=== PATIENT | male | born 1970 | race Caucasian/White ===

== ENCOUNTER 2016-08-26 17:06 | Emergency (ER) | payer OTHER, BC ==
--- NOTE | ~2016-08-26 | OR ---
Unit #: [id number] #: [id number] Patient: KEN STEINER [id number] [address] [place], [place] [address] [id number] I MR#: [id number] NAME: KEN STEINER ROOM: [id number] Date of Procedure: 08/27/2016 Admission Date: 08/27/2016 Surgeon: Maycol Silva M.D. : 1970 Attending Physician: Maycol Silva M.D. OPERATIVE REPORT PREOPERATIVE DIAGNOSIS Acute cholecystitis. POSTOPERATIVE DIAGNOSIS Acute cholecystitis. PROCEDURE PERFORMED Laparoscopic cholecystectomy. ANESTHESIA General endotracheal. COMPLICATIONS None. ESTIMATED BLOOD LOSS Minimal. DESCRIPTION OF PROCEDURE After the patient was prepped and draped in usual fashion, 1 cm infraumbilical incision was made. A Veress needle was passed. The peritoneal cavity was insufflated in usual fashion. A 5-mm port was placed and under direct vision, an upper midline 11-mm port and two right upper quadrant 5-mm ports were placed. The gallbladder was quickly identified. It was very long and distended. The tip of the gallbladder went all the way down to the pelvic inlet. It was tensely distended and edematous, and I could not grasp this. Approximately 60 mL of white bile was aspirated. The gallbladder was then grasped, retracted cephalad. The adhesions of omentum were stripped down bluntly to expose the infundibulum. The infundibulum was grasped and the cystic duct and cystic artery were dissected from the surrounding tissues. The cystic duct was clipped doubly proximally, singly distally. As this was divided, it appeared that the duct was toward the end of the clips and was not completely occluded as there was some fat in the front portion of the clips. With this, two more clips were placed before it was completely divided in order to secure the cystic duct, so that there would not be a bile leak. The cystic duct was then completely divided. Cystic artery was found just beneath and medial to this. This was clipped doubly proximally, singly distally, and divided. As the infundibulum was taken off the bed with electrocautery, and the anterior artery was identified as well, this was clipped doubly proximally, singly distally, and divided. The bed of the gallbladder was very edematous. This was taken off the bed using electrocautery and retrieved through the upper midline trocar site Unit #: [id number] #: [id number] Patient: KEN STEINER through an Endopouch. The specimen barely fit from the pouch. I had to extend the incision about 1 cm to 1.5 cm and incised fascia as well in order to remove the large specimen. The right upper quadrant was inspected. There was no bleeding from the bed. Because there had been avulsed spillage of bile and there had been some oozing. I did irrigate the right upper quadrant and suctioned free. There was still no bleeding from the bed. The ports were removed under direct vision. There was no bleeding. Abdomen was desufflated. The first upper midline trocar site was closed with 2 interrupted [id number] stitches of 0 Vicryl. All skin incisions were closed with clips. All skin incisions were infiltrated with 0.5% Marcaine with epinephrine. Dressings were applied. The patient was taken to the recovery room in good condition. Dictated by... Lashon Khan/naeem TD: 08/27/2016 23:22 JOB #: [id number] OPERATIVE REPORT Page 1 of 1 X Maycol Silva PROCEDURE OPERATIVE NOTE
--- NOTE | ~2016-08-26 | US67 ---
[facility] A Service of [facility] RADIOLOGY TEXT RESULTS PATIENT: KEN STEINER LOCATION: [facility] : [birth year] UNIT #: [id number] AGE: [address]: Pedrito Sheppard DO SEX: M ORDER DR: [id number] [facility] [address] [place], [place] [address] [id number] E MR#: [id number] Acc #: [id number] NAME: KEN STEINER : 1970 SEX: M STUDY DATE/TIME: 08/26/2016 21:00 UNIT: [facility] ROOM: STUDY DESCRIPTION: Gallbladder Attending Physician: Pedrito Sheppard D.O. Ordering Physician: Pedrito Sheppard D.O. Primary Care Physician: No Primary Care Physician MEDICAL IMAGING REPORT This report is preliminary unless electronic signature is present EXAM Gallbladder ultrasound HISTORY Right upper quadrant pain for 2 days. FINDINGS Ultrasound examination of the gallbladder demonstrates gallbladder distension, measuring at least 16 cm in length, but less well visualized in its long dimension than on CT earlier today when it measured over 19 cm in length. There is mild diffuse gallbladder wall thickening, and there is a small amount of fluid about the gallbladder, and there are multiple gallstones measuring up to approximately 2 cm. Findings are concerning for cholecystitis. The common bile duct measures 6 mm in diameter. No hepatic mass adjacent to the gallbladder fossa. IMPRESSION 1. Findings are concerning for cholecystitis with gallbladder distension, [id number] diffuse gallbladder wall thickening, small amount of adjacent pericholecystic fluid and gallstones measuring up to approximately 2 cm. Findings correspond to those on CT earlier today. 2. No biliary dilatation. Dictated by... Adarsh Persaud M.D. THIS IS AN ELECTRONICALLY VERIFIED REPORT Adarsh Persaud M.D. at 08/26/2016 10:32 PM DFL/juliar TD: 08/26/2016 22:20 [facility] A Service of [facility] RADIOLOGY TEXT RESULTS PATIENT: KEN STEINER [id number] [birth year] UNIT #: [id number] AGE: [address]: Pedrito Sheppard DO SEX: M ORDER DR: HARIKA #: [id number] MEDICAL IMAGING REPORT Page 1 of 1 COPY
--- NOTE | ~2016-08-26 | CO ---
Unit #: [id number] #: [id number] Patient: KEN STEINER [id number] [address] [address] [id number] I MR#: [id number] NAME: KEN STEINER ROOM: 55576 Age: 45 Sex: M Admission Date: 08/27/2016 : 1970 Attending Physician: Maycol Silva M.D. Consultation Date: 08/27/2016 CONSULTATION REPORT PRIMARY REASON FOR CONSULTATION Acute cholecystitis. HISTORY OF PRESENT ILLNESS The patient is a 45-year-old gentleman, who presents to the emergency room with a 3-day history of upper and mid abdominal pain. He has never had any previous such symptoms. He denies any previous food intolerance. He denies any fevers or chills. He has had nausea, but no vomiting. He denies any diarrhea. Pain is exacerbated by movement, relieved by nothing. CT scan in the emergency room was benign other than suggesting some thickened, inflammation of the gallbladder. An ultrasound subsequently showed gallstones and thickened gallbladder wall. PAST MEDICAL HISTORY As above. He has had no previous abdominal surgeries. He has no chronic medical illnesses. REVIEW OF SYSTEMS A 10-point review is performed. This is negative other than what was already listed in the history of present illness. MEDICATIONS See his MAR. ALLERGIES He has no known medical allergies. SOCIAL HISTORY He is a smoker. He denies alcohol or drug abuse. FAMILY HISTORY Noncontributory. PHYSICAL EXAMINATION GENERAL: He is alert, in some mild abdominal discomfort. VITAL SIGNS: Temperature is 98.6, heart rate 83, blood pressure 155/76, respirations 15. He is 100% saturated on room air. HEENT: Pupils are equal and round. Extraocular motions are intact. NECK: Supple without adenopathy. HEART: Regular rate and rhythm. LUNGS: Clear to auscultation anteriorly. ABDOMEN: Soft, flat with guarding in the epigastric and right upper quadrant areas. No masses appreciable. EXTREMITIES: Negative for clubbing, cyanosis, or edema. Unit #: [id number] #: [id number] Patient: KEN STEINER NEUROLOGIC: Negative focal sensory or motor deficits. SKIN: Warm and dry. DIAGNOSTIC STUDIES LABORATORY RESULTS: Significant for normal white blood cell count and normal liver function tests. IMAGING STUDIES: CT and ultrasound as described above. ASSESSMENT AND PLAN The patient with acute cholecystitis. I have discussed the laparoscopic cholecystectomy with him including the risks of bleeding, infection, and conversion to an open procedure. He understands and agrees to proceed. This will be done later today. Dictated by... Lashon Khan/naeem TD: 08/27/2016 09:08 JOB #: [id number] CONSULTATION REPORT Page 1 of 1 X Maycol Silva CONSULTATION REPORT
--- NOTE | ~2016-08-26 | CT2 ---
[facility] A Service of [facility] RADIOLOGY TEXT RESULTS PATIENT: KEN STEINER LOCATION: [facility] : [birth year] UNIT #: [id number] AGE: [address]: Maycol Silva SEX: M ORDER DR: [id number] [facility] [address] [place], [place] [address] [id number] E MR#: [id number] Acc #: [id number] NAME: KEN STEINER : 1970 SEX: M STUDY DATE/TIME: 08/26/2016 18:30 UNIT: [facility] ROOM: STUDY DESCRIPTION: CT Abd and Pelv W Cont Attending Physician: Pedrito Sheppard D.O. Ordering Physician: Pedrito Sheppard D.O. MEDICAL IMAGING REPORT This report is preliminary unless electronic signature is present EXAM CT abdomen and pelvis with contrast INDICATIONS Left lower quadrant abdominal pain since yesterday. TECHNIQUE Contrast-enhanced CT of the abdomen and pelvis. 100 mL of Isovue-370. This CT exam was performed with one or more of the following radiation dose reduction techniques: automatic exposure control, adjustment of mA and/or kV according to patient size, and iterative reconstruction. COMPARISON None. FINDINGS ABDOMEN WITH CONTRAST: Included lung bases are clear. The liver, spleen, kidneys, adrenal glands, pancreas are unremarkable. Bowel loops are non-dilated. The appendix is non-dilated. No abdominal fluid collection. The gallbladder is significantly elongated measuring approximately 19 cm in length. There are a few areas suspicious for a trace amount of pericholecystic fluid. PELVIS WITH CONTRAST: No pelvic mass or fluid. No aggressive appearing bone lesion. IMPRESSION 1. No definite acute findings. 2. The gallbladder is significantly elongated, and there are a few areas that may represent a small amount of pericholecystic fluid. [facility] A Service [facility] RADIOLOGY TEXT RESULTS PATIENT: KEN STEINER LOCATION: [facility] : [birth year] UNIT #: [id number] AGE: [address]: Mayclo Silva SEX: M ORDER DR: Correlate with any current symptoms or clinical suspicion for acute cholecystitis. Dictated by... Steve Maciel M.D. THIS IS AN ELECTRONICALLY VERIFIED REPORT Steve Maciel M.D. at 08/29/2016 9:45 AM EED/pcl TD: 08/26/2016 21:12 JOB #: [id number] MEDICAL IMAGING REPORT Page 1 of 1 COPY
[2016-08-26 17:07] LABS: BASOPHIL% 0.5 % (0-2.5); EOSINOPHIL% 0.5 % (0.0-7.0); HEMATOCRIT 41.7 % (38.0-50.0); HEMOGLOBIN 13.9 gm/dL (13.0-16.0); LYMPHOCYTE# 0.9 X10e3 (1.0-3.5); LYMPHOCYTE% 8.9 % (17.0-45.0); MEAN CELL VOLUME 96.1 FL (83-96); MEAN CORPUSCULAR HGB CONC 33.3 g/dL (30-36); MEAN PLATELET VOLUME 6.9 FL (6.5-11.5); MONOCYTE# 0.7 X10e3 (0-1.0); MONOCYTE% 6.9 % (3.0-12.0); NEUTROPHIL# 8.3 X10e3 (1.5-7.1); NEUTROPHIL% 83.2 % (40-75); PLATELET COUNT 221 X10e3 (140-420); RED BLOOD COUNT 4.34 X10e (3.90-5.60); RED CELL DISTRIBUTION WIDTH 13.5 % (11.0-15.5); WHITE BLOOD COUNT 9.9 X10e3 (4.0-10.5)
[2016-08-26 17:08] LABS: DIFF IND NO
[2016-08-26 17:31] LABS: ALBUMIN SERUM 3.7 g/dL (3.5-5.0); ALKALINE PHOSPHATASE 89 U/L (32-92); ALT (SGPT) 29 U/L (10-40); AST (SGOT) 28 U/L (10-42); BILIRUBIN,TOTAL 0.7 mg/dL (0.2-2.0); BLOOD UREA NITROGEN 13 mg/dL (9-23); BUN/CREATININE RATIO 18.57; CALCIUM SERUM 9.1 mg/dL (8.4-10.2); CARBON DIOXIDE 26 mmol/L (22-31); CHLORIDE 103 mmol/L (100-111); CREATININE SERUM 0.7 mg/dL (0.6-1.4); GLOM FILT RATE Estimated 112.4 mL/min (>60); GLUCOSE FASTING 122 mg/dL (70-110); LIPASE 16 U/L (22-51); POTASSIUM 3.8 mmol/L (3.5-5.1); PROTEIN TOTAL SERUM 6.8 g/dL (6.0-8.3); SODIUM 137 mmol/L (135-145)
[2016-08-26 17:33] LABS: BILIRUBIN, DIRECT <0.1 mg/dL (0.0-0.2); BILIRUBIN,INDIRECT 0.6 mg/dL (0.0-0.9)
[2016-08-26 17:36] LABS: URINE SOURCE CLEAN CATCH
[2016-08-26 17:50] LABS: URINE BACTERIA AUWI NEG (NEGATIVE); URINE SQUAMOUS EPITHELIAL CELL NONE SEEN /[HPF]; UWBCS1 AUWI 0-2 (0-5)
[2016-08-26 17:52] LABS: CULTURE INDICATED? NO
[2016-08-26 18:39] LABS: URINE APPEARANCE SL CLOUDY; URINE COLOR YELLOW
[2016-08-26 18:46] LABS: URINE ICTOTEST NEG (NEG)
[2016-08-26 18:47] LABS: URINE BILIRUBIN NEG (NEG); URINE GLUCOSE NEG (NEG); URINE KETONE NEG (NEG); URINE LEUKOCYTE ESTERASE TRACE (NEG); URINE NITRATE POS (NEG); URINE PROTEIN NEG (NEG); URINE UROBILINOGEN NEG (NEG)
[2016-08-26 18:48] LABS: URINE BLOOD 2+ (NEG)
[2016-08-27 01:41] LABS: BASOPHIL% 0.3 % (0-2.5); EOSINOPHIL# 0.1 X10e3 (0-0.7); HEMATOCRIT 39.1 % (38.0-50.0); HEMOGLOBIN 13.1 gm/dL (13.0-16.0); LYMPHOCYTE# 1.5 X10e3 (1.0-3.5); LYMPHOCYTE% 13.4 % (17.0-45.0); MEAN CELL VOLUME 95.4 FL (83-96); MEAN CORPUSCULAR HEMOGLOBIN 31.9 PG (28-34); MEAN CORPUSCULAR HGB CONC 33.4 g/dL (30-36); MEAN PLATELET VOLUME 7.2 FL (6.5-11.5); MONOCYTE% 9.5 % (3.0-12.0); NEUTROPHIL# 8.3 X10e3 (1.5-7.1); NEUTROPHIL% 75.8 % (40-75); PLATELET COUNT 213 X10e3 (140-420); RED CELL DISTRIBUTION WIDTH 13.3 % (11.0-15.5)
[2016-08-27 01:45] LABS: DIFF IND NO
[2016-08-27 01:51] LABS: ALBUMIN SERUM 3.5 g/dL (3.5-5.0); BUN/CREATININE RATIO 13.75; CALCIUM SERUM 8.9 mg/dL (8.4-10.2); CREATININE SERUM 0.8 mg/dL (0.6-1.4); GLOM FILT RATE Estimated 106.4 mL/min (>60); POTASSIUM 4.7 mmol/L (3.5-5.1); PROTEIN TOTAL SERUM 6.2 g/dL (6.0-8.3)
[2016-08-27 02:33] LABS: POC - CKMB 1.9 ng/mL (0.0-7.9); POC - TROPONIN <0.05 ng/mL (<=0.05)
== END 2016-09-07 08:33 | disposition home or self-care (01) ==
LOC: CED 17:06
PROVIDERS: Emergency Medicine; Surgery
DX: K81.0 Acute cholecystitis (principal); F17.210 Nicotine dependence, cigarettes, uncomplicated
CPT/HCPCS: 36415; 74177; 76705; 80048; 80053; 80076; 81003; 82553; 83690; 84484; 85025; 88304; 96361; 96365; 96372; 96375; 99285; J0500; J1100; J1885; J2250; J2270; J2405; J2543; J2710; J2765; Q9967